=== PATIENT | male | born 1965 | race African-American/Black ===

== ENCOUNTER 2021-02-19 11:11 | Outpatient (CLI) | payer MEDICARE, MEDICAID, SELFPAY | END 2021-02-19 11:12 | disposition home or self-care (01) | LOC: ANHCOVIDVC 11:11 | PROVIDERS: PCP Nurse Practitioner Gerontology | DX: Z23 Encounter for immunization (principal) | CPT/HCPCS: 0001A; 91300 ==

== ENCOUNTER 2021-03-12 10:33 | Outpatient (CLI) | payer MEDICARE, MEDICAID, SELFPAY | END 2021-03-12 10:34 | disposition home or self-care (01) | LOC: ANHCOVIDVC 10:33 | PROVIDERS: PCP Nurse Practitioner Gerontology | DX: Z23 Encounter for immunization (principal) | CPT/HCPCS: 0002A; 91300 ==